=== PATIENT | female | born 1995 | race Two or more races ===

== ENCOUNTER 2020-06-10 12:30 | Emergency (ER) | payer OTHER ==
[2020-06-10 12:50] VITALS: BP 110/73
[2020-06-10 14:26] LABS: Urine Bacteria FEW /hpf (None Seen); Urine Blood Negative /uL (Negative); Urine Mucus FEW (None Seen); Urine Specific Gravity 1.036 (1.001-1.035); Urine WBC 30 /hpf (0 - 5)
== END 2020-06-10 17:30 | disposition home or self-care (01) ==
LOC: ER 12:30
DX: O23.591 Infection of other part of genital tract in pregnancy, first trimester (principal); O23.41 Unspecified infection of urinary tract in pregnancy, first trimester; B96.89 Other specified bacterial agents as the cause of diseases classified elsewhere; A59.9 Trichomoniasis, unspecified; Z3A.01 Less than 8 weeks gestation of pregnancy
CPT/HCPCS: 36415; 76801; 76817; 81001; 84702; 87210